=== PATIENT | female | born 1955 | race Caucasian/White ===

== ENCOUNTER 2021-05-16 04:17 | Emergency (ER) | payer BC ==
[2021-05-16] MEDS ORDERED: CYCLOBENZAPRINE10 MG PO (05:33)
[2021-05-16] MEDS ORDERED: IBU600 MG PO (05:34)
== END 2021-05-16 06:18 | disposition home or self-care (01) ==
LOC: ER1 04:17
DX: S70.02XA Contusion of left hip, initial encounter (principal); I10 Essential (primary) hypertension; W19.XXXA Unspecified fall, initial encounter; Y92.009 Unspecified place in unspecified non-institutional (private) residence as the place of occurrence of the external cause
CPT/HCPCS: 72192; 73502; 99284

== ENCOUNTER 2021-05-29 11:48 | Inpatient (IN) | payer BC ==
[~2021-05-29] VITALS: Ht 154.9 cm; Wt 64.0 kg
[~2021-05-29 11:48] MED LIST: CYCLOBENZAPRINE10 MG PO; IBU600 MG PO
[2021-05-29] MEDS ORDERED: IBU800 MG PO (13:27)
[2021-05-29] MEDS ORDERED: MULTIVITAMIN1 EACH PO (13:27)
[2021-05-29] MEDS ORDERED: AMLODIPINE BESY10 MG PO (13:27)
[2021-05-29 13:46] LABS: HEMOGLOBIN 18.1 gm/dl (12.3-15.3); RED BLOOD COUNT 5.66 M/UL (4.00-5.10); WHITE BLOOD COUNT 11.8 K/UL (4.5-11.0)
[2021-05-29 14:16] LABS: BUN/CREATININE RATIO 35 (0-10)
[2021-05-30 03:12] LABS: HEMOGLOBIN 17.6 gm/dl (12.3-15.3); RED BLOOD COUNT 5.52 M/UL (4.00-5.10); WHITE BLOOD COUNT 12.8 K/UL (4.5-11.0)
[2021-05-30 04:01] LABS: BUN/CREATININE RATIO 30 (0-10)
[2021-05-31 03:04] LABS: HEMOGLOBIN 14.2 gm/dl (12.3-15.3); WHITE BLOOD COUNT 15.5 K/UL (4.5-11.0)
[2021-05-31 03:16] LABS: RED BLOOD COUNT 4.51 M/UL (4.00-5.10)
[2021-05-31 04:31] LABS: BUN/CREATININE RATIO 39 (0-10)
[2021-05-31] MEDS ORDERED: PERCOCET 5/325 T1 EA PO (12:46)
[2021-05-31] MEDS ORDERED: ATORVASTATIN CA40 MG PO (12:46)
[2021-05-31] MEDS ORDERED: KLOR-CON M2020 MEQ PO (12:54)
== END 2021-05-31 16:31 | disposition home health service (06) | DRG 522 ==
LOC: M/S 11:48
PROVIDERS: Orthopaedic Surgery; Physician Assistant; ADMIT Internal Medicine
PROC: 0SRB04A Replacement of Left Hip Joint with Ceramic on Polyethylene Synthetic Substitute, Uncemented, Open Approach (ICD-10-PCS; principal; 2021-05-30 11:30)
DX: S72.032A Displaced midcervical fracture of left femur, initial encounter for closed fracture (principal); I10 Essential (primary) hypertension; F17.200 Nicotine dependence, unspecified, uncomplicated; E87.6 Hypokalemia; I73.9 Peripheral vascular disease, unspecified; Z20.822 Contact with and (suspected) exposure to COVID-19; R10.30 Lower abdominal pain, unspecified; W01.0XXA Fall on same level from slipping, tripping and stumbling without subsequent striking against object, initial encounter; Y92.091 Bathroom in other non-institutional residence as the place of occurrence of the external cause; Z98.51 Tubal ligation status; Z82.49 Family history of ischemic heart disease and other diseases of the circulatory system; Z80.8 Family history of malignant neoplasm of other organs or systems; Z72.89 Other problems related to lifestyle; Z79.899 Other long term (current) drug therapy; F10.10 Alcohol abuse, uncomplicated; Z71.6 Tobacco abuse counseling
CPT/HCPCS: 71045; 73502; 73552; 73700; 76000; 80048; 80053; 83735; 84132; 85018; 85025; 85027; 85610; 86850; 86900; 86901; 93005; 93925; 97116-GP-CQ; 97162; 97166; 97535; C1776; J0171; J0735; J1100; J1644; J1885; J2001; J2250; J2274; J2405; J2704; J2795; J3370; J7030; J7050; J7120; P9045; U0002